=== PATIENT | female | born 2005 | race African-American/Black ===

== ENCOUNTER 2025-04-08 20:45 | Emergency (ER) | payer OTHER ==
[~2025-04-08] VITALS: Ht 160 cm; Wt 72.7 kg
[2025-04-09] MEDS ORDERED: KETOROLAC 30 MG/ML 1 ML VIAL As Ordered ONE (00:44)
[2025-04-09] MEDS: KETOROLAC 30 MG/ML 1 ML VIAL IV ONE (00:45)
[2025-04-09 00:56] LABS: BASO # 0.0 10^3/uL (0.0-0.2); BASO % 0.3 % (0.0-1.0); EOS # 0.0 10^3/uL (0.0-0.5); EOS % 0.3 % (0.0-3.0); LYMPH # 1.7 10^3/uL (1.5-5.0); LYMPH % 17.1 % (24.0-44.0); MONO # 1.1 10^3/uL (0.0-0.8); MONO % 11.2 % (2.0-8.0); NEUTROPHILS # 7.2 10^3/uL (1.5-8.5); NEUTROPHILS % 70.8 % (36.0-66.0); PLATELET COUNT, AUTOMATED 357 10^3/uL (150-450)
[2025-04-09 01:24] LABS: C REACTIVE PROTEIN QUANTITATIV 1.87 MG/DL (<1.0); CALCIUM LEVEL 9.0 MG/DL (8.5-10.1); CARBON DIOXIDE LEVEL 24 MMOL/L (20-31); CHLORIDE LEVEL 107 MMOL/L (98-107); CREATININE FOR GFR 0.66 MG/DL (0.55-1.30); GLOMERULAR FILTRATION RATE > 90.0 (>60); POTASSIUM SERUM 3.9 MMOL/L (3.5-5.1); SODIUM LEVEL 142 MMOL/L (136-145)
[2025-04-09 01:30] LABS: HCG, SERUM QUALITATIVE INDETERM. (NEGATIVE)
[2025-04-09 01:42] LABS: HCG, SERUM QUANTITATIVE 19.9 MIU/ML (<4.2)
[2025-04-09] MEDS ORDERED: PRED10TA2 PO (01:59)
[2025-04-09] MEDS ORDERED: ACETAMINOPHEN 325 MG TAB As Ordered ONE (02:03)
[2025-04-09] MEDS: ACETAMINOPHEN 500 MG TAB PO ONE (02:05)
[2025-04-09 02:09] VITALS: BP 156/82; TEMP 97.9; O2SAT 99
== END 2025-04-09 02:10 | disposition home or self-care (01) ==
LOC: M ED 20:45
DX: K04.7 Periapical abscess without sinus (principal); Z33.1 Pregnant state, incidental
CPT/HCPCS: 80048; 84702; 84703; 85025; 85652; 86140; 96374; 99284; J1885

== ENCOUNTER 2025-04-17 12:56 | Emergency (ER) | payer OTHER ==
[~2025-04-17] VITALS: Ht 157.5 cm; Wt 72.1 kg
[~2025-04-17 12:56] MED LIST: PRED10TA2 PO
[2025-04-17 14:23] LABS: BASO # 0.1 10^3/uL (0.0-0.2); BASO % 0.8 % (0.0-1.0); EOS # 0.1 10^3/uL (0.0-0.5); EOS % 1.7 % (0.0-3.0); LYMPH # 3.2 10^3/uL (1.5-5.0); LYMPH % 43.5 % (24.0-44.0); MONO # 0.7 10^3/uL (0.0-0.8); MONO % 9.0 % (2.0-8.0); NEUTROPHILS # 3.3 10^3/uL (1.5-8.5); NEUTROPHILS % 44.9 % (36.0-66.0); PLATELET COUNT, AUTOMATED 468 10^3/uL (150-450)
[2025-04-17 14:45] LABS: KETONE, URINE AUTO RFX NEGATIVE (NEGATIVE); LEUKOCYTE ESTERASE UR AUTO RFX 1+ (NEGATIVE); MUCUS, URINE RFX SMALL (NEGATIVE); NITRITE, URINE AUTO RFX NEGATIVE (NEGATIVE); RBC, URINE AUTO RFX 1 /HPF (0-3); SQUAM EPITHELIAL CELL UR AURFX 1 /HPF (0-6); WBC, URINE AUTO RFX 1 /HPF (0-3)
[2025-04-17 14:57] LABS: CALCIUM LEVEL 9.5 MG/DL (8.5-10.1); CARBON DIOXIDE LEVEL 25 MMOL/L (20-31); CHLORIDE LEVEL 106 MMOL/L (98-107); CREATININE FOR GFR 0.71 MG/DL (0.55-1.30); GLOMERULAR FILTRATION RATE > 90.0 (>60); HCG, SERUM QUANTITATIVE 4.0 MIU/ML (<4.2); POTASSIUM SERUM 4.3 MMOL/L (3.5-5.1); SODIUM LEVEL 139 MMOL/L (136-145)
[2025-04-17 15:06] LABS: HCG, SERUM QUALITATIVE NEGATIVE (NEGATIVE)
[2025-04-17 15:47] VITALS: BP 134/70; TEMP 98.3; O2SAT 100
== END 2025-04-17 16:55 | disposition home or self-care (01) ==
LOC: M ED 12:56
DX: N92.6 Irregular menstruation, unspecified (principal); Z79.52 Long term (current) use of systemic steroids